=== PATIENT | female | born 1970 | race Hispanic/Latino ===

== ENCOUNTER 2018-12-23 18:53 | Observation (INO) | payer OTHER, SELFPAY ==
[~2018-12-23 18:53] MED LIST: ISOVUE-370 76%-LOCM 1 ML ONE
[2018-12-23] MEDS ORDERED: Fentanyl 100 MCG/2 ML VIAL ONE ×2 (19:11→21:16)
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
[2018-12-23 19:53] LABS: #Basophils 0.1 thou/uL (0.0-0.2); #Eosinphils 0.1 thou/uL (0.0-0.7); #Lymphocytes 3.2 thou/uL (1.20-3.40); #Monocytes 0.8 thou/uL (0.11-0.59); #Neutrophils 8.1 thou/uL (1.40-6.50); %Basophils 0.7 % (0.0-1.0); %Eosinophils 0.6 % (0.0-10.0); %Lymphocytes 26.3 % (21.0-51.0); %Monocytes 6.2 % (0.0-10.0); %Neutrophils 66.2 % (42.0-75.0); Hemoglobin 12.1 g/dL (12.0-16.0); Mean Corpuscular HGB CONC 33.2 g/dL (32.0-36.0); Mean Corpuscular Hemoglobin 26.8 pg (27.0-31.0); Mean Corpuscular Volume 80.7 fL (78.0-98.0); Mean Platelet Volume 8.3 fL (7.4-10.4); Platelet Count 364 thou/uL (130-400); RBC Distribution Width 13.7 % (11.5-14.5); White Blood Cell (WBC) Count 12.2 thou/uL (4.8-10.8)
[2018-12-23 19:57] LABS: BHCG - Serum Negative (NEGATIVE); Pregs Control Background? CLEAR/WHITE (CLR/WHITE); Pregs Control Bar Appear? YES (CONTROL BAR)
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
[2018-12-23 19:59] LABS: PTT 25.2 SEC (22.9-36.1); Prothrombin Time 13.3 SEC (12.0-14.7)
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
[2018-12-23 20:18] LABS: ALT (SGPT) 21 U/L (8-55); AST (SGOT) 38 U/L (5-34); Albumin 4.3 g/dL (3.5-5.0); Alkaline Phosphatase 130 U/L (40-110); Anion Gap 13 mmol/L (10-20); BUN (Urea Nitrogen) 12 mg/dL (7.0-18.7); Bilirubin, Total 0.2 mg/dL (0.2-1.2); Calc. Creatinine Clearance 0 mL/min (70-130); Calcium 9.4 mg/dL (7.8-10.44); Carbon Dioxide 21 mmol/L (22-29); Chloride 107 mmol/L (98-107); Estimated GFR-MDRD Greater than 90; Globulin 3.8 g/dL (2.4-3.5); Glucose 105 mg/dL (70-105); Potassium 3.7 mmol/L (3.5-5.1); Protein, Total 8.1 g/dL (6.0-8.3); Sodium 137 mmol/L (136-145)
[2018-12-23] MEDS ORDERED: Adacel (T-DAP) 0.5 ML SYRINGE ONE (21:16)
[2018-12-23] MEDS ORDERED: Ondansetron PF 4 MG/2 ML Vial ONE ×3 (21:51→22:50)
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
[2018-12-23] MEDS ORDERED: Dextrose 50% Abboject 50 ML SYRINGE SLOW IVP PRN (23:15)
[2018-12-23] MEDS ORDERED: Ondansetron ODT 4 MG TAB PO PRN (23:15)
[2018-12-23] MEDS ORDERED: Ondansetron PF 4 MG/2 ML Vial IVP PRN (23:15)
[2018-12-23] MEDS ORDERED: Sodium Chloride 0.9% 1,000 ML IV SCH (23:15)
[2018-12-23] MEDS ORDERED: traMADol HCl 50 MG TAB PO PRN (23:15)
[2018-12-23] MEDS ORDERED: Promethazine HCl 25 MG/ML VIAL IM PRN ×2 (23:15)
[2018-12-23] MEDS ORDERED: Dextrose 5% in Water 1,000 ML IV PRN (23:15)
[2018-12-23] MEDS ORDERED: Ibuprofen 800 MG TAB PO SCH (23:15)
[2018-12-23] MEDS ORDERED: traMADol HCl 50 MG TAB PO SCH (23:15)
[2018-12-23] MEDS ORDERED: hydrALAZINE 20 MG/ML VIAL SLOW IVP PRN (23:15)
[2018-12-23] MEDS ORDERED: Cyclobenzaprine 10 MG TAB PO PRN (23:15)
[2018-12-24] MEDS: Acetaminophen 500 MG TAB PO SCH ×2 (00:42→06:15)
[2018-12-24] MEDS ORDERED: Ibuprofen 600 MG TAB PO SCH (00:45)
[2018-12-24] MEDS ORDERED: traMADol HCl 50 MG TAB PO PRN (01:30)
[2018-12-24] MEDS ORDERED: traMADol HCl 50 MG TAB PO SCH (01:30)
[2018-12-24 02:24] VITALS: BMI 32.4
[2018-12-24] MEDS ORDERED: Ibuprofen 800 MG TAB PO SCH (06:00)
[2018-12-24] MEDS: Ibuprofen 600 MG TAB PO SCH ×3 (06:16→21:35)
[2018-12-24] MEDS: Acetaminophen/Codeine 30-300mg Tablet PO PRN ×3 (08:54→21:35)
[2018-12-24] MEDS: Famotidine 20 MG TAB PO SCH ×2 (08:54→21:34)
[2018-12-24] MEDS ORDERED: FLU VACC QS2019-20(6MOS UP)/PF 60 MCG/0.5 ML SYRINGE IM ONE (09:00)
[2018-12-24] MEDS ORDERED: Acetaminophen 325 MG TAB PO PRN (09:01)
[2018-12-24] MEDS: Senokot S 8.6-50 MG TAB PO SCH ×2 (09:16→21:35)
[2018-12-24] MEDS: Gabapentin 300 MG CAP PO SCH ×2 (09:16→21:38)
[2018-12-24] MEDS: Polyethylene Glycol 3350 17 GM Packet PO SCH (09:16)
--- NOTE | 2018-12-24 09:45 | RAD ---
LEFT KNEE FOUR VIEWS: HISTORY: Knee pain. FINDINGS: Mild narrowing of the medial joint space. No significant degenerative change. No evidence of fracture or acute osseous abnormality. No joint effusion. IMPRESSION: Mild narrowing of the medial joint space. Left knee otherwise unremarkable. POS: OFF
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
[2018-12-24] MEDS ORDERED: Acetaminophen 325 MG TAB PO SCH (12:00)
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
[2018-12-24] MEDS: Enoxaparin Sodium 30 MG/0.3 ML SYRINGE SC SCH (21:38)
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
[2018-12-25] MEDS: Acetaminophen/Codeine 30-300mg Tablet PO PRN ×2 (04:46→22:45)
[2018-12-25] MEDS: Ibuprofen 600 MG TAB PO SCH ×3 (05:02→21:31)
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
[2018-12-25] MEDS: Enoxaparin Sodium 30 MG/0.3 ML SYRINGE SC SCH ×2 (09:34→21:31)
[2018-12-25] MEDS: Polyethylene Glycol 3350 17 GM Packet PO SCH (09:34)
[2018-12-25] MEDS: Famotidine 20 MG TAB PO SCH ×2 (09:34→21:31)
[2018-12-25] MEDS: Senokot S 8.6-50 MG TAB PO SCH ×2 (09:34→21:31)
[2018-12-25] MEDS: Gabapentin 300 MG CAP PO SCH ×2 (09:34→21:31)
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
[2018-12-26] MEDS: Ibuprofen 600 MG TAB PO SCH ×2 (05:46→14:36)
[2018-12-26 08:15] VITALS: TEMP 97.8
[2018-12-26] MEDS: Enoxaparin Sodium 30 MG/0.3 ML SYRINGE SC SCH (09:49)
[2018-12-26] MEDS: Gabapentin 300 MG CAP PO SCH (09:50)
[2018-12-26] MEDS: Acetaminophen/Codeine 30-300mg Tablet PO PRN (09:50)
[2018-12-26] MEDS: Polyethylene Glycol 3350 17 GM Packet PO SCH (09:50)
[2018-12-26] MEDS: Famotidine 20 MG TAB PO SCH (09:50)
[2018-12-26] MEDS: Senokot S 8.6-50 MG TAB PO SCH (09:50)
[2018-12-26] MEDS ORDERED: Acetaminophen/Codeine 30-300mg Tablet PO SCH (11:00)
[2018-12-26 12:03] VITALS: BP 138/69
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
== END 2018-12-26 16:42 | disposition home health service (06) ==
LOC: ERS 18:53 → 2SW 21:28
PROVIDERS: ADMIT Surgery; ATTEND Surgery
DX: S22.41XA Multiple fractures of ribs, right side, initial encounter for closed fracture (principal); S82.491A Other fracture of shaft of right fibula, initial encounter for closed fracture; S92.351A Displaced fracture of fifth metatarsal bone, right foot, initial encounter for closed fracture; S01.01XA Laceration without foreign body of scalp, initial encounter; G89.11 Acute pain due to trauma; Z88.5 Allergy status to narcotic agent; V89.2XXA Person injured in unspecified motor-vehicle accident, traffic, initial encounter
CPT/HCPCS: 36415; 36416; 70450; 71045; 71260; 72125; 74177; 80053; 83690; 84703; 85025; 85610; 85730; 86850; 86900; 86901; 90471; 90715; 94640; 96361; 96372; 96374; 96376; G0378; G0390; J1650; J2405; J2550; J3010; J7620; Q9966

== ENCOUNTER 2019-01-06 14:04 | Outpatient (CLI) | payer SELFPAY ==
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
== END 2019-01-06 14:05 | disposition home or self-care (01) ==
LOC: RAD 14:04
PROVIDERS: ATTEND Physician Assistant
DX: S22.43XA Multiple fractures of ribs, bilateral, initial encounter for closed fracture (principal)
CPT/HCPCS: 71046